=== PATIENT | female | born 1955 | race Caucasian/White ===

== ENCOUNTER → 2021-07-05 | Outpatient (CLI) | payer MEDICARE, OTHER ==
--- NOTE | 2021-07-11 11:41 | MM ---
Reason for exam: screening (asymptomatic). Last mammogram was performed 6 years and 6 months ago. History: Patient is postmenopausal. Took estrogen for 2 years. Physical Findings: A clinical breast exam by your physician is recommended on an annual basis and results should be correlated with mammographic findings. MG 3D Screening Mammo W/Cad Bilateral CC and MLO view(s) were taken. Prior study comparison: December 24, 2014, mammogram, performed at [facility] [place]. There are scattered fibroglandular densities. Finding: There is a 2 x 4 mm high density mass located 11cm and 8cm from the nipple in the upper outer quadrant of the right breast consistent with possible nodes. New finding since December 24, 2014. ASSESSMENT: Incomplete: need additional imaging evaluation, BI-RAD 0 RECOMMENDATION: Ultrasound of the right breast. [facility] will attempt to contact patient to return for ultrasound.
== END | disposition home or self-care (01) ==
LOC: RADMAMWWP 15:44
PROVIDERS: ATTEND Family Medicine
DX: Z12.31 Encounter for screening mammogram for malignant neoplasm of breast (principal); Z78.0 Asymptomatic menopausal state
CPT/HCPCS: 77063; 77067

== ENCOUNTER → 2021-07-11 | Outpatient (CLI) | payer MEDICARE, OTHER | END | disposition home or self-care (01) | LOC: LABWHC1 11:58 | PROVIDERS: ATTEND Physician Assistant | DX: I10 Essential (primary) hypertension (principal); R51.9 Headache, unspecified | CPT/HCPCS: 36415; 82533; 83835 ==

== ENCOUNTER → 2021-07-18 | Outpatient (CLI) | payer MEDICARE, OTHER ==
--- NOTE | 2021-07-18 09:07 | USB ---
Reason for exam: additional evaluation requested from abnormal screening. History: Patient is postmenopausal. Took estrogen for 2 years. Physical Findings: A clinical breast exam by your physician is recommended on an annual basis and results should be correlated with mammographic findings. US Breast Workup Limited RT Right limited breast ultrasound including focal area of concern, retroareolar and axilla demonstrates a 0.3 x 0.3 x 0.2cm oval, cystic lesion at 10 o'clock, a 0.3 x 0.3 x 0.1cm oval, cystic lesion at 12 o'clock and a 1.0 x 0.7 x 0.5cm lymph node at the axilla. Scanned 9-12 o'clock. These results were verbally communicated with the patient and result sheet given to the patient on 07/18/21. ASSESSMENT: Benign, BI-RAD 2 RECOMMENDATION: Return to routine screening mammogram schedule for both breasts.
== END | disposition home or self-care (01) ==
LOC: RADUSWWP 08:25
PROVIDERS: ATTEND Family Medicine
DX: N60.01 Solitary cyst of right breast (principal); Z78.0 Asymptomatic menopausal state

== ENCOUNTER 2021-07-28 06:52 | Day surgery (SDC) | payer MEDICARE, OTHER ==
[2021-07-27 08:57] VITALS: BMI 26.6
[~2021-07-28 06:52] MED LIST: LACTATED RINGERS 1,000 ML IV SCH; LIDOCAINE 1% (10MG/ML) FOR IV START INTRADERMA PRN; MIDAZOLAM 2 MG/2 ML VIAL IV PRN
[2021-07-28 08:11] VITALS: TEMP 98.3
[2021-07-28] MEDS ORDERED: PROPOFOL 10 MG/ML 20 ML VIAL IV ONE (08:51)
[2021-07-28] MEDS ORDERED: LIDOCAINE 1% INJ 10MG/ML (20 ML MDV) ONE (08:51)
--- NOTE | 2021-07-28 08:52 | P.GSHP ---
History of Present Illness H&P Date: 07/28/21 Chief Complaint: Dysphagia, screening colonoscopy This is a 65-year-old female who presents today for EGD and screening colonoscopy. Patient had complaints of dysphagia. Dysphagia and intermittent nature. She feels that she has a lump in her throat. Patient's last colonos copy was over 10 years ago. Past Medical History Past Medical History: Hypertension, Thyroid Disorder Additional Past Medical History / Comment(s): "felt like there was something in my throat,but is better since starting b/p medication" History of Any Multi-Drug Resistant Organisms: None Reported Past Surgical History: Hysterectomy Additional Past Surgical History / Comment(s): colonscopy Past Anesthesia/Blood Transfusion Reactions: No Reported Reaction Smoking Status: Former smoker - Past Family History Mother Family Medical History: No Reported History Sister(s) Family Medical History: Cancer Additional Family Medical History / Comment(s): colon Father Family Medical History: Cancer Medications and Allergies Home Medications Medication Instructions Recorded Confirmed Type Levothyroxine Sodium [Synthroid] 100 mcg PO QAM 07/27/21 07/27/21 History Rosuvastatin Calcium 5 mg PO DAILY 07/27/21 07/27/21 History lisinopriL [Prinivil] 20 mg PO BID 07/27/21 07/27/21 History Allergies Allergy/AdvReac Type Severity Reaction Status Date / Time Sulfa (Sulfonamide Allergy Rash/Hives Verified 07/28/21 08:07 Antibiotics) Surgical - Exam Vital Signs Temp Pulse Resp BP Pulse Ox 98.3 F 64 16 153/73 98 07/28/21 08:07 07/28/21 08:07 07/28/21 08:07 07/28/21 08:07 07/28/21 08:07 - General well developed, well nourished, no distress - Eyes PERRL - ENT normal pinna - Neck no masses - Respiratory normal expansion - Cardiovascular Rhythm: regular - Abdomen Abdomen: soft, non tender Assessment and Plan Plan: Dysphagia. We'll perform EGD. We'll also perform screening colonoscopy.
--- NOTE | 2021-07-28 09:10 | P.OP ---
Date of Procedure: 07/28/21 Preoperative Diagnosis: Dysphagia Screening colonoscopy Postoperative Diagnosis: Antral gastritis Small sliding hiatal hernia Mild esophagitis Normal colonoscopy Procedure(s) Performed: EGD Colonoscopy Anesthesia: MAC Surgeon: Royal Falcon Pathology: other (Antrum, esophagus) Condition: stable Disposition: PACU Description of Procedure: Patient's placed on the endoscopy table in the lateral position. She received IV sedation. The gastroscope placed oropharynx passed in the esophagus and stom ach. Scope was then placed through the pylorus. The first and second portion of the duodenum appeared normal. Scope was then brought back the antrum this was mildly inflamed. A biopsies performed. Scope was then retroflexed the remainder of the stomach appeared normal. There was a small sliding hiatal hernia. The GE junction was at 38 cm. The distal esophagus appeared mildly inflamed. A biopsies performed. The scope was then brought back the proximal esophagus this appeared normal. Scope withdrawn for patient. Next digital rectal exam was performed. His revealed no abnormalities. Flexible colonoscope was then placed patient anus and passed throughout the entire colon. The ileocecal valve was visually's. The cecum, ascending and transverse colon appeared normal. The descending and sigmoid colon appeared normal. Scope was then brought back the rectum this appeared normal. Scope withdrawn for patient.
[2021-07-28 09:40] VITALS: RESP 20
[2021-07-28 10:25] VITALS: BP 171/80; PULSE 57
== END 2021-07-28 10:32 | disposition home or self-care (01) ==
LOC: ORWHC2ENDO 06:52
PROVIDERS: ATTEND Surgery
DX: Z12.11 Encounter for screening for malignant neoplasm of colon (principal); K29.50 Unspecified chronic gastritis without bleeding; K21.00 Gastro-esophageal reflux disease with esophagitis, without bleeding; I10 Essential (primary) hypertension; E07.9 Disorder of thyroid, unspecified; E78.5 Hyperlipidemia, unspecified; Z90.710 Acquired absence of both cervix and uterus; Z87.891 Personal history of nicotine dependence; Z80.0 Family history of malignant neoplasm of digestive organs; Z80.9 Family history of malignant neoplasm, unspecified; Z79.890 Hormone replacement therapy; Z79.899 Other long term (current) drug therapy; Z88.2 Allergy status to sulfonamides
CPT/HCPCS: 88305; 43239; J2001; J2704; G0121

== ENCOUNTER → 2024-04-14 | Outpatient (CLI) | payer MEDICARE, OTHER ==
[2024-04-14 11:00] LABS: African American GFR (CKD) 73 (>60 ml/min/1.73 sqM); Blood Urea Nitrogen 14 mg/dL (7-17); Non-African American GFR(CKD) 63 (>60 ml/min/1.73 sqM)
--- NOTE | 2024-04-14 12:01 | CT ---
EXAMINATION TYPE: CT chest w con DATE OF EXAM: 04/14/2024 COMPARISON: None CLINICAL INDICATION: Female, 68 years old with history of R91.1 LUNG NODULE; PHH, lung nodule TECHNIQUE: CT scan of the chest is performed with IV Contrast, patient injected with 100 mL of Isovue 300. MIP Images are created on CT scanner and reviewed. 3D reconstructed images are created on an independent workstation and reviewed. CT DLP: 303.30 mGycm Automated exposure control for dose reduction was used. FINDINGS: LUNGS: There is a 6 mm groundglass nodule right upper lobe image 17. Additional apical subpleural 2 m m nodule. A 4 mm subpleural nodule right lower lobe image 52. Minimal groundglass changes lingular se gment left upper lobe likely in the basis of atelectasis. No consolidative pneumonia or pleural effus ion. MEDIASTINUM: The heart is enlarged and there is a trace of pericardial fluid. Moderate coronary arter y calcification. Aorta measures 3.5 cm in greatest dimension. No pathologic-sized lymphadenopathy. OTHER: Findings of hepatic steatosis. Small hiatal hernia. Tiny gallstone not excluded. IMPRESSION: 1. No acute intrathoracic process. There is a 6 mm right upper lobe groundglass nodule for which six- month follow-up is recommended. 2. Hepatic steatosis. Tiny gallstone not excluded. Follow-up recommendations for incidental pulmonary nodules are per [employer] or [employer]. [facility], , 04/14/2024 11:58 AM
== END | disposition home or self-care (01) ==
LOC: RADCTMAIN 10:21
PROVIDERS: ATTEND Family Medicine
DX: R91.1 Solitary pulmonary nodule (principal); K76.0 Fatty (change of) liver, not elsewhere classified
CPT/HCPCS: 82565; 84520; 71260; 36415; Q9967

== ENCOUNTER → 2024-08-25 | Outpatient (CLI) | payer MEDICARE, OTHER ==
[2024-08-25 13:45] LABS: African American GFR (CKD) 80 (>60 ml/min/1.73 sqM); Blood Urea Nitrogen 13 mg/dL (7-17); Non-African American GFR(CKD) 69 (>60 ml/min/1.73 sqM)
--- NOTE | 2024-08-25 14:47 | CT ---
EXAMINATION TYPE: CT abdomen w con DATE OF EXAM: 08/25/2024 2:18 PM COMPARISON: None CLINICAL INDICATION: Female, 69 years old with history of R19.00 INTRA-ABD AND PELVIC SWELLING, MASS, K46.9; MID ABDOMINAL PAIN. PT STATES POSS HERNIA NEAR AND ABOVE BELLY BUTTON TECHNIQUE: Axial CT abdomen w con;Sagittal and coronal reformats were created on a separate workstat ion. Contrast used:100ml mL of Isovue 300 with IV Contrast, (none if empty) Oral contrast used: with Oral Contrast (none if empty) CT DLP: 504.40 mGycm, Automated exposure control for dose reduction was used. FINDINGS: LOWER CHEST: Unremarkable ABDOMEN LIVER: Unremarkable GALLBLADDER AND BILE DUCTS: Fundal adenomyomatosis present. PANCREAS: Unremarkable. SPLEEN: Unremarkable. ADRENAL GLANDS: Unremarkable. KIDNEYS AND URETERS: No evidence of hydronephrosis or obstructing renal calculus. The ureters are unr emarkable. ABDOMEN & PELVIS STOMACH AND BOWEL: No evidence of bowel obstruction. Small hiatal hernia. Impression duodenal diverti culum extending towards the pancreas. PERITONEUM/RETROPERITONEUM: No evidence of pneumoperitoneum or free fluid. VASCULATURE: No evidence of aortic aneurysm. MUSCULOSKELETAL: No acute osseous abnormalities LYMPH NODES: No gross evidence for lymphadenopathy. SOFT TISSUE/ABDOMINAL WALL: Tiny fat-containing umbilical hernia measuring 7 mm at the neck. IMPRESSION: 1. No evidence for ventral wall hernia. There is a fat-containing hernia present which measures 7 mm at the neck. No intra-abdominal mass or lymphadenopathy visualized. 2. 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 3. Second portion duodenal diverticulum. [facility], , 08/25/2024 2:45 PM
== END | disposition home or self-care (01) ==
LOC: RADCTMAIN 13:06
PROVIDERS: ATTEND Family Medicine
DX: K57.10 Diverticulosis of small intestine without perforation or abscess without bleeding (principal); K46.9 Unspecified abdominal hernia without obstruction or gangrene
CPT/HCPCS: 82565; 84520; 74160; 36415; Q9967

== ENCOUNTER → 2024-10-23 | Outpatient (CLI) | payer MEDICARE, OTHER ==
[2024-10-23 15:34] LABS: African American GFR (CKD) 80 (>60 ml/min/1.73 sqM); Blood Urea Nitrogen 14 mg/dL (7-17); Non-African American GFR(CKD) 69 (>60 ml/min/1.73 sqM)
--- NOTE | 2024-10-23 16:36 | CT ---
CT thorax with contrast. HISTORY: Solitary pulmonary nodule COMPARISON: 04/14/2024 TECHNIQUE: Multiple thorax after the administration of IV contrast material. FINDINGS: A 6 mm right upper lobe groundglass nodule is stable. There is no pneumatosis lung mass or nodule.. There is no airspace consolidation or abnormal interstitial density There is no pleural effusion, pleural thickening or pneumothorax. The great vessels the chest are normal with no mediastinal, hilar or axillary adenopathy. Limited scanning through the upper abdomen reveals mild liver steatosis.. There are no focal osseous lesions. IMPRESSION: 1. Stable 6 mm groundglass nodule in the right upper lobe. No new or suspicious lung mass or nodule. 2. No acute cardiopulmonary disease. 3. Stable mild liver steatosis [facility], , 10/23/2024 4:33 PM
== END | disposition home or self-care (01) ==
LOC: RADCTMAIN 14:51
PROVIDERS: ATTEND Family Medicine
DX: R91.1 Solitary pulmonary nodule (principal); K76.0 Fatty (change of) liver, not elsewhere classified
CPT/HCPCS: 82565; 84520; 71260; 36415; Q9967